=== PATIENT | female | born 2000 | race Caucasian/White ===

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

== ENCOUNTER 2021-06-19 12:02 | Outpatient (REF) | payer OTHER, SELFPAY | END 2021-06-19 12:03 | disposition home or self-care (01) | LOC: HO.HMGCLDS 12:02 | PROVIDERS: PCP Pediatrics; Visit Provider Internal Medicine | DX: Z13.89 Encounter for screening for other disorder (principal) ==

== ENCOUNTER 2024-11-30 11:19 | Outpatient (AMB) | payer OTHER, SELFPAY ==
--- NOTE | 2024-11-30 11:21 | A.OFFPC_ITS ---
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: No Is last menstrual period known: Yes Last menstrual period: 11/09/24 Post menopausal: No Patient : No Allergies Sulfa (Sulfonamide Antibiotics) Adverse Reaction (Intermediate, Verified 11/30/24 11:40) Hives Medication List - Last Reconciled 11/30/24 by Horace Tafoya CNP No Known Home Meds Tobacco use date assessed: 11/30/24 Dental Screening Dental Screen Date: 11/30/24 Did you have a dental visit in the last 12 months?: Yes Did you have a dental problem in the last 6 months where you did not have access to dental care?: No Was dental information given to patient?: Patient has dentist HPI HPI Comments History of Present Illness Details 24-year-old female presents to [facility] care. She notes controlled anxiety and depressive symptoms for the past 4 years. She was on psychotropic medications until 4 years ago. Has an IUD. Prior PCP? - [facility] Last office visit/CPE/labs - 2 years ago Acute issue(s) - None Past Medical History - IBS, anxiety, depression, myopia Surgical History - None Family History - Dad: Bipolar 1 disorder - Mom: Breast cancer Social History - Nonsmoker. Does not vape. Drinks 1-2 b eer monthly. Smoke cannabis 2-3 times monthly - Has been making healthy dietary choice s. Exercises routinely. Generally sleep well - She is sexually active, in a monogamou s relationship, and has no concern for STDs Health maintenance - Last eye exam was over 2 years ago. Re dara to Ophthalmology for routine eye exam - Last dental visit was within the past 6 months - Unknown last tetanus vaccine status. H ealth record from previous PCP not currently available. She will obtain her immunization record for her PCP to review - She notes that she is up-to-date on flu vaccine - Last pap smear test was over 2 years a go: normal. Referred to 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 1. Little interest or pleasure in doing things: not at all 2. Feeling down, depressed, or hopeless: not at all 3. Trouble falling or staying asleep, or sleeping too much: not at all 4. Feeling tired or having little energy: several days 5. Poor appetite or overeating: not at all 6. Feeling bad about yourself - or that you are a failure or have let yourself or your family down: not at all 7. Trouble concentrating on things, such as reading the newspaper or watching television: several days 8. Moving or speaking so slowly that other people could have noticed. Or the opposite - being so fidgety or restless that you have been moving around a lot more than usual: several days 9. Thoughts that you would be better off or of hurting yourself in some way: not at all Total score: 3 Depression Screening Interpretation: Negative Depression Screening Done: Yes 81010 - PHQ-9 Billing: Yes Source: Developed by Drs. Washington Rogers, Priya Hood, Curt Bucio and colleagues, with an educational deepak from [employer]. Thrive Questionnaire Date Thrive assessed: 11/30/24 I am a: Patient What is your living situation today?: I have a steady place to live Within the past 12 months, did the food you bought not last and you didn't have the money to get more?: Sometimes True Within the past 12 months, did you worry whether your food would run out before you got money to buy more?: Sometimes True Do you have trouble paying for medicines?: No Do you have trouble getting transportation to medical appointments?: No Do you have trouble paying your heating and electricity bill?: No Do you have trouble taking care of your child, family member or friend?: I choose not to answer this question Do you have trouble with day-to-day activities such as bathing, preparing meals, shopping, managing finances, etc.?: No Are you currently unemployed and looking for a job?: No Are you interested in more education?: Yes Please select the resources that you would like help with: Education Currently or been in a relationship where the following occur: No concerns reported THRIVE Score: 2 AUDIT C Alcohol Use Questionnaire (AUDIT-C) 1. How often do you have a drink containing alcohol?: Monthly or less 2. How many drinks containing alcohol do you have on a typical day when you are drinking?: 1 or 2 3. How often do you have six or more drinks on one occasion?: Less than monthly Total Score: 2 AMINTA-7 AMB Questionnaire AMINTA-7 Date AMINTA - 7 assessed: 11/30/24 Feeling nervous, anxious, or on edge: 1 = Several days Not being able to stop or control worryin = Not at all Worrying too much about different things: 0 = Not at all Trouble relaxin = Not at all Being so restless that it is hard to sit still: 0 = Not at all Becoming easily annoyed or irritable: 0 = Not at all Feeling afraid as if something awful might happen: 0 = Not at all Total AMINTA-7 score (0-4 normal; 5-9 mild; 10-14 moderate; 15-21 severe): 1 Source: Developed by Drs. Washington Rogers, Priya Hood, Curt Bucio and colleagues, with an educational deepak from [employer]. AMINTA-7 Assessment Billing AMINTA-7 Assessment Tool: AMINTA-7 Assessment 13703 Review of Systems Const Details: Denies chills, Denies fatigue, Denies fever(s), Denies headache(s) and Denies weakness HEENT Denies change in vision, Denies dizziness, Denies headache(s), Denies hearing loss, Denies nasal congestion, Denies sinus pain, Denies sinus pressure and Denies sore throat Card Denies chest pain, Denies lightheadedness, Denies dyspnea and Denies other (palpitations) Resp Denies cough, Denies dyspnea and Denies wheezing GI Denies abdominal pain, Denies melena, Denies hematochezia, Denies change in bowel habits, Denies dyspepsia and Denies nausea Denies hematuria and Denies dysuria Musc Denies abnormal gait, Denies myalgias, Denies arthralgias, Denies numbness and Denies tingling Skin/Breast Denies rash, Denies unusual bruising and Denies wounds Neuro Denies abnormal gait, Denies dizziness, Denies headache(s), Denies memory loss, Denies numbness, Denies Sensory deficit (Neuro), Denies tingling and Denies weakness Psych Denies anxiety, Denies depression and Denies memory loss Endo Denies cold intolerance, Denies fatigue, Denies heat intolerance, Denies polydi psia and Denies polyuria Umair/Lymph Denies easy bleeding and Denies easy bruising Aller/Immun Denies wheezing Physical exam (Primary Care) Vital Signs: Last Vital Signs Temp 97.3 F 11/30/24 11:32 Pulse 94 11/30/24 11:32 Resp 16 11/30/24 11:32 BP 115/66 11/30/24 11:32 Pulse Ox 100 11/30/24 11:32 Oxygen Delivery Method Room Air 11/30/24 11:32 BMI result Body Mass Index 26.8 Tobacco/Smoking Status: Tobacco use Status Tobacco use date assessed 11/30/24 11/30/24 11:32 Patient Tobacco Use Status Never used Tobacco 11/30/24 11:32 e-Cigarette/Vaping Use Never Used 11/30/24 11:32 PHQ-9: PHQ-9 Score PHQ-9: Total score 3 11/30/24 11:32 Depression Screening Interpretation: Negative Thrive Assessment: Date of Thrive Assessment Date Thrive assessed 11/30/24 11/30/24 11:32 Currently or been in a relationship where the following occur: No concerns reported Const Other: General: no acute distress, well developed, alert and awake Nutritional Appearance: well nourished Orientation/consciousness: patient oriented x3 HENMT Head: Yes normocephalic and Yes atraumatic Ears: hearing grossly normal bilaterally and TM's normal bilaterally General nose exam: Normal external nose present and Normal nares present Mouth: Normal oral and palatal mucosa present and moist mucous membranes Teeth and gingiva: dentition normal Throat: Yes oropharynx normal Eyes Pupils: Equal, round and reactive pupils present and Pupil accommodation reflex normal EOM: EOMs intact bilaterally Neck Neck: Yes normal visual inspection, Yes no lymphadenopathy and Yes trachea midline Thyroid: Thyroid normal Carotids: no bruits Lymphatic: no lymphadenopathy noted Chest Chest palpation & inspection: normal inspection of the chest Resp Effort & Inspection: normal respiratory effort Auscultation: clear to auscultation bilaterally Cardio Rate: regular rate Rhythm: regular rhythm Heart sounds: S1 normal heart sound present, S2 normal heart sound present, no gallops, no murmurs and no rubs Bruits: no abdominal aortic bruits and no carotid bruits GI Palpation (GI): No Abdominal aortic bruit present, Soft to palpation, nontender, No hepatosplenomegaly present and No Rebound tenderness present Auscultation: normal bowel sounds General: Yes no CVA tenderness Back/Spine/Pelvis Back: no CVA tenderness Cervical Spine: cervical ROM normal and No Cervical spine tenderness Thoracic/Lumbar Spine: thoraco-lumbar ROM normal, No pain with thoraco-lumbar ROM, No thoracic spinal tenderness and No lumbar spinal tenderness Skin General: warm and dry. Normal skin color. Normal skin turgor Lesions: no lesions Rashes: no rashes Trauma: no lacerations or abrasions Wounds: no wounds Nails: normal Neuro General: patient oriented x3, gait normal and CN's II-XI intact bilaterally Cranial nerves: Yes Equal, round and reactive pupils present Cognition (Neuro): normal cognition Gait exam (Neuro): Normal gait present Motor exam (neuro): 5/5 motor strength present throughout Sensory Exam: No Sensory deficit (Neuro) Deep tendon reflexes (DTR's): Right patellar reflex intensity grade: 2+ and Left patellar reflex intensity grade: 2+ Extrem General: Yes normal to inspection, No edema and No calf tenderness Psych Appearance: grossly normal Affect: normal affect Attitude: cooperative Thought process: Normal thought process present Coding Level of Care Code New Pt Prev Care 18-39yr(17709 Diagnoses Normal physical examination, routine Z00.00 Anxiety and depression F41.9; F32.A Pap smear for cervical cancer screening Z12.4 Eye exam, routine Z01.00 Laboratory tests ordered as part of a complete physical exam (CPE) Z00.00 Additional Codes AMINTA-7 Assessment Billing - AMINTA-7 Assessment Tool: AMINTA-7 Assessment 44451 ([id number]) PHQ-9 - 68586 - PHQ-9 Billing: Yes ([id number]) Assessment & Plan Assessment & Plan (1) Normal physical examination, routine: Code(s): Z00.00 - Encounter for general adult medical examination without abnormal findings Category: Medical Plan: No significant functional limitation noted. Advised to perform lab work 2-3 days before next visit. Follow-up for telehealth visit in 2-3 weeks for labs review or sooner with symptoms or concerns. Verbalized understanding and agreed with treatment plan. (2) Anxiety and depression: Code(s): F41.9 - Anxiety disorder, unspecified; F32.A - Depression, unspecified Category: Medical Plan: Controlled anxiety and depressive symptoms for the past 4 years. She was on psychotropic medications until 4 years ago. PHQ-9 and AMINTA-7 scores are normal. Routine exercise encouraged. Follow-up with symptoms or concerns. Verbalized understanding and agreed with treatment plan. (3) Pap smear for cervical cancer screening: Code(s): Z12.4 - Encounter for screening for malignant neoplasm of cervix Category: Medical Plan: Last pap smear test was over 2 years ago: normal. Referred to [facility] multimedia editor. (4) Eye exam, routine: Code(s): Z01.00 - Encounter for examination of eyes and vision without abnormal findings Category: Medical Plan: Her last eye exam was over 2 years ago. Refer to Ophthalmology for routine eye exam. (5) Laboratory tests ordered as part of a complete physical exam (CPE): Code(s): Z00.00 - Encounter for general adult medical examination without abnormal findings Category: Medical Plan: Fasting labs ordered as part of a complete physical exam. Advised to fast for at least 10 hours before getting labs drawn. May drink water Verbalized understanding and agreed with treatment plan. Orders: Orders Complete Blood Count Auto Diff Today Z00.00 - Encounter for general adult medical examination without abnormal findings TSH reflex Free T4 Today Z00.00 - Encounter for general adult medical examination without abnormal findings Vitamin D 25-OH Total Today Z00.00 - Encounter for general adult medical examination without abnormal findings Comprehensive [place]. Panel Fast Today Z00.00 - Encounter for general adult medical examination without abnormal findings Lipid Panel Today Z00.00 - Encounter for general adult medical examination without abnormal findings UA CC w/rflx Micro + Cult Today Z00.00 - Encounter for general adult medical examination without abnormal findings Referrals MEDICAL DETAIL REPRESENTATIVE Referral Z12.4 - Encounter for screening for malignant neoplasm of cervix Ophthalmology Referral Z01.00 - Encounter for examination of eyes and vision without abnormal findings
[2024-11-30 11:32] VITALS: BP 115/66; PULSE 94; RESP 16; TEMP 36.3; O2SAT 100; BMI 26.8
== END 2024-11-30 11:55 | disposition home or self-care (01) ==
LOC: HO.HMCFM 11:20
PROVIDERS: PCP Nurse Practitioner Family; Visit Provider Nurse Practitioner Family
DX: Z00.00 Encounter for general adult medical examination without abnormal findings (principal); F41.9 Anxiety disorder, unspecified; F32.A Depression, unspecified

== ENCOUNTER → 2024-11-30 11:19 | Outpatient (BNVA) | payer OTHER, SELFPAY | PROVIDERS: PCP Nurse Practitioner Family; Visit Provider Nurse Practitioner Family | DX: Z00.00 Encounter for general adult medical examination without abnormal findings (principal); F41.9 Anxiety disorder, unspecified; F32.A Depression, unspecified | CPT/HCPCS: 96127 ==

== ENCOUNTER 2024-12-11 16:04 | Outpatient (REF) | payer OTHER, SELFPAY ==
[2024-12-11 16:24] LABS: MANUAL DIFF FLAG NO
[2024-12-11 17:12] LABS: Basophils Absolute Auto 0.1 X10*3/uL (0.0-0.2); Basophils Percent Auto 0.7 % (0-2); Eosinophils Absolute Auto 0.1 X10*3/uL (0.0-0.4); Eosinophils Percent Auto 0.9 % (0-4); Hematocrit 38.5 % (37.0-47.0); Hemoglobin 13.4 g/dl (12.0-16.0); Imm Gran Abs Auto 0.03 X10*3/uL (0.00-0.03); Imm Gran Pct Auto 0.3 % (0.0-0.4); Lymphocytes Absolute Auto 2.9 X10*3/uL (1.2-4.9); Mean Corpuscular HGB Conc 34.8 g/dl (31.0-35.0); Mean Corpuscular Volume 89.1 fL (80.0-98.0); Mean Platelet Volume 9.4 fL (9.4-12.3); Monocytes Absolute Auto 0.6 X10*3/uL (0.1-1.2); Monocytes Percent Auto 6.3 % (2-11); Neutrophils Percent Auto 61.8 % (45-73); Platelet Count 319 X10*3/uL (160-400); Red Blood Count 4.32 X10*6/uL (4.20-5.50); White Blood Count 9.7 X10*3/uL (4.8-10.8)
[2024-12-11 17:44] LABS: Appearance Urine Clear; Color Urine Yellow; Glucose Urine UA Negative (Negative); Leukocyte Esterase Urine Negative (Negative); Nitrite Urine Negative (Negative); Specific Gravity - Urine 1.025 (1.005-1.025); Urine Blood Negative (Negative); Urine Ketones Negative (Negative); Urine Protein Negative (Neg-Trace)
[2024-12-11 17:46] LABS: Alanine Aminotransferase 19 U/L (0-31); Albumin Level 4.6 g/dL (3.5-5.0); Alkaline Phosphatase 43 U/L (39-117); Anion Gap 11 (12-20); Aspartate Amino Transferase 16 U/L (5-31); Bilirubin Total 0.4 mg/dL (0.0-1.0); Blood Urea Nitrogen 18 mg/dL (9-16); Calcium 9.7 mg/dL (8.4-10.2); Carbon Dioxide 26 mmol/L (22-29); Chloride 108 mmol/L (96-108); Cholesterol 162 mg/dL (<200); Estimated Glomerular Filt Rate > 60; Glucose Fasting 87 mg/dL (60-99); HDL Cholesterol 77 mg/dL (>40); LDL Cholesterol Calculated 75 mg/dL (<100); Potassium 4.5 mmol/L (3.3-5.1); Sodium 140 mmol/L (135-145); Triglycerides 52 mg/dL (<150)
[2024-12-11 18:01] LABS: TSH reflex Free T4 0.97 uIU/mL (0.32-4.0); Vitamin D 25-OH Total 23.7 ng/mL (>30)
== END 2024-12-11 16:05 | disposition home or self-care (01) ==
LOC: HO.LAB 16:04
PROVIDERS: PCP Nurse Practitioner Family; Visit Provider Nurse Practitioner Family
DX: Z00.00 Encounter for general adult medical examination without abnormal findings (principal)
CPT/HCPCS: 36415; 80053; 80061; 81003; 82306; 84443; 85025

== ENCOUNTER 2024-12-14 15:20 | Outpatient (AMB) | payer OTHER, SELFPAY ==
--- NOTE | 2024-12-14 15:17 | A.OFFPC_ITS ---
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 Required: No Is last menstrual period known: Yes Last menstrual period: 11/23/24 Post menopausal: No Patient : No Allergies Sulfa (Sulfonamide Antibiotics) Adverse Reaction (Intermediate, Verified 12/14/24 15:18) Hives Tobacco use date assessed: 12/14/24 Dental Screening Dental Screen Date: 12/14/24 Did you have a dental visit in the last 12 months?: Yes Did you have a dental problem in the last 6 months where you did not have access to dental care?: No Was dental information given to patient?: Patient has dentist HPI HPI Comments History of Present Illness Details 24-year-old female presents for review o f recent labs results. She offers no complaints and denies acute symptoms at this time. 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 Washington Rogers, Priya Hood, Curt Bucio and colleagues, with an educational deepak from [employer]. Review of Systems Const Details: Denies chills, Denies fatigue, Denies fever(s), Denies headache(s) and Denies weakness Cardiac Denies chest pain, Denies claudication, Denies leg edema, Denies lightheadedness, Denies palpitations, Denies dyspnea, Denies dyspnea on exertion, Denies orthopnea and Denies other (Loss of consciousness) Resp Denies cough, Denies excessive phlegm production, Denies dyspnea, Denies dyspnea on exertion, Denies snoring and Denies wheezing Physical exam (Primary Care) Tobacco/Smoking Status: Tobacco use Status Tobacco use date assessed 12/14/24 12/14/24 15:19 Patient Tobacco Use Status Never used Tobacco 12/14/24 15:19 e-Cigarette/Vaping Use Never Used 12/14/24 15:19 Thrive Assessment: Date of Thrive Assessment Date Thrive assessed 11/30/24 12/14/24 15:19 Const Other: Patient is alert oriented x3. Telehealth Telehealth Telehealth Platform: Telephone Location of provider rendering services: practice address Location of patient: address on file Patient Identification confirmed using: Name, : Yes Telehealth method: voice only Patient verbally consented to treatment: Yes Patient verbally consented to billing insurance company: Yes Patient informed of any privacy concerns related to visit: Yes Coding Level of Care Code Tele Est Pt Level 3 (80907) Diagnoses Vitamin D deficiency E55.9 Time Spent (min) 10 Assessment & Plan Assessment & Plan (1) Vitamin D deficiency: Code(s): E55.9 - Vitamin D deficiency, unspecified Category: Medical Plan: Recent vitamin-D level is low, 23.7. Vitamin D3 1000 units daily ordered; advised to take as prescribed. Perform vitamin-D blood work 2-3 days before next visit. Follow-up for telehealth visit in 6 weeks or sooner with symptoms or concerns. Verbalized understanding and agreed with the plan. Orders: Orders Vitamin D 25-OH Total 6 Weeks E55.9 - Vitamin D deficiency, unspecified Medications: New cholecalciferol (vitamin D3) 25 mcg PO DAILY 30 tabs 3RF 30 days
== END 2024-12-14 16:05 | disposition home or self-care (01) ==
LOC: HO.HMCFM 15:20
PROVIDERS: PCP Nurse Practitioner Family; Visit Provider Nurse Practitioner Family
DX: E55.9 Vitamin D deficiency, unspecified (principal)

== ENCOUNTER 2025-02-25 06:16 | Outpatient (REF) | payer OTHER, SELFPAY ==
[2025-02-25 08:06] LABS: Vitamin D 25-OH Total 26.7 ng/mL (>30)
== END 2025-02-25 06:17 | disposition home or self-care (01) ==
LOC: HO.LAB 06:16
PROVIDERS: PCP Nurse Practitioner Family; Visit Provider Nurse Practitioner Family
DX: E55.9 Vitamin D deficiency, unspecified (principal)
CPT/HCPCS: 36415; 82306

== ENCOUNTER 2025-02-26 15:23 | Outpatient (AMB) | payer OTHER, SELFPAY ==
--- NOTE | 2025-02-26 15:19 | A.OFFPC_ITS ---
Intake Visit Reasons: 6 wks Vit D deficiency Intake Note: patient here for 6 wks telehealth follow up for vit D deficiency Cash Applications Analyst Required: No Is last menstrual period known: Yes Post menopausal: No Patient : No Followed by:: Just started period 2 days ago 02/24/2025 Allergies Sulfa (Sulfonamide Antibiotics) Adverse Reaction (Intermediate, Verified 02/26/25 15:20) Hives Tobacco use date assessed: 02/26/25 Dental Screening Dental Screen Date: 02/26/25 Did you have a dental visit in the last 12 months?: Yes Did you have a dental problem in the last 6 months where you did not have access to dental care?: No Was dental information given to patient?: Patient has dentist HPI HPI Comments History of Present Illness Details 24-year-old female presents [facility] for vitamin-D deficiency follow-up. She admits to taking vitamin D3 25 mcg daily without adverse reactions. She offers no complaints and denies acute symptoms at this time. 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 Washington Rogers, Priya Hood, Curt Bucio and colleagues, with an educational deepak from [employer]. Review of Systems Const Details: Denies chills, Denies fatigue, Denies fever(s), Denies headache(s) and Denies weakness Cardiac Denies chest pain, Denies claudication, Denies leg edema, Denies lightheadedness, Denies palpitations, Denies dyspnea, Denies dyspnea on exertion, Denies orthopnea and Denies other (Loss of consciousness) Resp Denies cough, Denies excessive phlegm production, Denies dyspnea, Denies dyspnea on exertion, Denies snoring and Denies wheezing Physical exam (Primary Care) Tobacco/Smoking Status: Tobacco use Status Tobacco use date assessed 02/26/25 02/26/25 15:21 Patient Tobacco Use Status Never used Tobacco 02/26/25 15:21 e-Cigarette/Vaping Use Never Used 02/26/25 15:21 Thrive Assessment: Date of Thrive Assessment Date Thrive assessed 11/30/24 02/26/25 15:21 Const Other: Patient is alert and oriented x3 Telehealth Telehealth Telehealth Platform: Telephone Location of provider rendering services: practice address Location of patient: address on file Patient Identification confirmed using: Name, : Yes Telehealth method: voice only Patient verbally consented to treatment: Yes Patient verbally consented to billing insurance company: Yes Patient informed of any privacy concerns related to visit: Yes Coding Level of Care Code Tele Est Pt Level 3 (02815) Diagnoses Vitamin D deficiency E55.9 Time Spent (min) 15 Assessment & Plan Assessment & Plan (1) Vitamin D deficiency: Code(s): E55.9 - Vitamin D deficiency, unspecified Category: Medical Plan: Recent vitamin-D level is slightly low, 26.7. Vitamin D3 increased to 50 mcg daily; advised to take as prescribed. Informed that the son is a good source of vitamin-D Perform vitamin-D blood work a few days before next visit. Follow-up for telehealth visit in 6 weeks. Return sooner with symptoms or concerns. Verbalized understanding and agreed with treatment plan. Medications: New cholecalciferol (vitamin D3) 50 mcg PO DAILY 90 days 90 tabs 3RF Discontinued cholecalciferol (vitamin D3) Discontinued Reason: Doctor's Order 25 mcg PO DAILY 30 days 30 tabs 3RF
== END 2025-02-26 16:37 | disposition home or self-care (01) ==
LOC: HO.HMCFM 15:23
PROVIDERS: PCP Nurse Practitioner Family; Visit Provider Nurse Practitioner Family
DX: E55.9 Vitamin D deficiency, unspecified (principal)

== ENCOUNTER → 2025-02-26 15:23 | Outpatient (BNVA) | payer OTHER, SELFPAY | PROVIDERS: PCP Nurse Practitioner Family; Visit Provider Nurse Practitioner Family ==

== ENCOUNTER 2025-07-25 13:48 | Outpatient (AMB) | payer OTHER, SELFPAY ==
--- NOTE | 2025-07-25 13:51 | A.OFFVIS_ITS ---
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 She has a Liletta IUD and she has liked it it is due for replacement in October she has had it for almost 6 years she gets very subtle symptoms of her. With mild spotting and a little bit of cramping and a little acne beforehand and a little of mood changes and breast sensitivity beforehand help her know when the period is there. She would like a replacement of the IUD and would like the hormonal method. Also she has a family history of breast cancer her mother was diagnosed with breast cancer at age 38 and when she was 43 and her grandmother had breast cancer as well. 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 [facility] Medical History Depression Anxiety IBS (irritable bowel syndrome) Family History Father FH: mental illness Mother Breast cancer Social History (Updated 07/25/25 @ 14:11 by Kelsie Cardozo MA) Housing: House Alcohol intake: current Patient Tobacco Use Status: Never used Tobacco e-Cigarette/Vaping Use: Never Used Second Hand Smoke Exposure: No Substance Use Type: Marijuana Patient : No service: No Current occupational status: employed and student Current occupational exposures/hazards: No Cognitive needs: No Hearing needs: No Vision needs: Yes Female Reproductive History Menstrual Age of Menarche: 12 Duration of menses: 6-7 days Date of last menstrual period: 07/19/25 control method: progestin IUCD (Liletta) Total pregnancies: 0 History of abnormal pap smear: No Physical Exam Const General: healthy appearing, comfortable, no acute distress, well developed and alert Nutritional Appearance: average body habitus Orientation/consciousness: patient oriented x3 Limitations: no limitations HEENT Head: Yes normocephalic Neck Neck: Yes normal visual inspection Chest Chest palpation & inspection: normal inspection of the chest Breast/axilla inspection: normal inspection of the breasts and normal inspection of the axillae Breast/axilla palpation: normal palpation of the axillae, abnormal palpation of the breast (Irregular firmness of tissue right [id number]) and other (Left breast there is a large firm mass irregular borders 11:00 to 1:00) Chest/axillae images: 2 1. Small nodularity right breast 05:00 2. Larger irregular firm mass 1:00 to 11:00 Resp Effort & Inspection: normal respiratory effort GI Inspection: Yes normal to inspection, No Abdominal wall edema and No distended Palpation (GI): Soft to palpation and nontender Other: Normal external exam vagina is pink and moist clear fluid with end of menses pink tinge cervix nulliparous pink smooth with blob of clear mucus consistent with hormonal contraceptive and Liletta string extending about 2-3 cm. Uterus is small midposition mobile nontender adnexa nontender extremely good tone with Kegel. General: Yes bladder normal to palpation External Female Exam: normal external appearance and normal appearance of the urethra Speculum Exam - Vagina: normal appearance of the vagina, normal palpation and normal vaginal discharge Speculum Exam - Cervix: normal appearance of the cervix, normal palpation and nontender Bimanual exam- vagina & uterus: normal bimanual exam, normal palpation, uterine size normal, bladder normal to palpation, consistency normal, normal palpation, uterine mobility normal, uterine shape normal, No Cervical tenderness present, non-tender and no cervical motion tenderness Bimanual Exam- Adnexa, other: normal adnexae, no masses, normal and No adnexal tenderness Neuro General: patient oriented x3 Assessment & Plan Assessment & Plan (1) Pap smear for cervical cancer screening: Code(s): Z12.4 - Encounter for screening for malignant neoplasm of cervix Category: Medical (2) Presence of 52 mg levonorgestrel-releasing intrauterine device (IUD): Comment: Has Liletta it is due to be replaced this September or October Mirena pace with Mirena when she has her menses Code(s): Z97.5 - Presence of (intrauterine) contraceptive device Category: Social Hx (3) Family history of breast cancer in first degree relative: Code(s): Z80.3 - Family history of malignant neoplasm of breast Category: Medical (4) Breast mass in female: Comment: ? Small mass right breast 05:00, larger mass left breast 1:00 to 11:00 irregular. Code(s): N63.0 - Unspecified lump in unspecified breast Category: Medical (5) Screen for sexually transmitted diseases: Code(s): Z11.3 - Encounter for screening for infections with a predominantly sexual mode of transmission Category: Medical Plan -----Discussed in this visit the following: healthy balanced diet, regular and consistent exercise, getting recommended health screens, doing the best she can for her particular health concerns, kegel exercises, pap smear screening and followup recommendations, mammography screening and SBE, normal changes in cycles in her life stage--- .Reviewed how the Mirena works and its affect on menstrual cycles and menses and the other common changes that women sometimes notice on mood weight another subtle cyclic changes. Reviewed that 1 of the reasons we insert the Mirena at the beginning of the menses is because of the typical physiologic changes that happen with menses that allow for the cervix to be slightly softened and open a very tiny bit which allow for more easy insertion of the Mirena. Additionally when it is inserted at the beginning of the menstrual cycle the endometrial lining has not built up very much yet as it is just shedding its lining, and therefore future periods will be expected to be cloth bleaching range tender and there will be less of a problematic side effect of irregular bleeding which might occur her if we inserted it at a random time. Discussed problems to watch for including any severe pain, fever, feeling of expulsion. Also discussed what to do if those occur.(call here or seek urgent care) Reviewed why we leave the strings about 3-4 centimetres long, so that they will curl around the cervix otherwise the sharper tip of the strings could be palpable and be uncomfortable. Additionally when they are cut too short it is not possible to remove the IUD in the future easily. Also discussed the initial recommendations to use the Mirena IUD for contraception for up to 5 years. Some recent studies are indicating that it can be used for longer and there are current recommendations saying it can be left for longer period of time when used for contraception, up to 8 years and it can be used for 5 years when it is being used to help control abnormal bleeding. However, many women, whose periods went away for the 1st few years of having the Mirena, have reported that around 4-1/2-5 years into its use, they have noticed return of full menses, and return of ovulatory signs and symptoms midcycle. This varies from women to woman. In addition women who have had it to help control bleeding, have had amenorrhea for very many years and sometimes have opted to leave it in longer if they are still not bleeding, when they are not concerned about contraception. I recommend the she pay attention to how the effects are acting on her own body, and cycles, and always take care to be aware of this. And if she is using it for contraception, and the consequences of conceiving would be great for her, she would be bonner to pay attention to this, and not depend on it, if she has a return to fertility. And if she desires replacement, she should return for replacement at the appropriate time. As regards family history of breast cancer we discussed either following up with her primary but then I decided to place the referral myself with Dr. Loya for discussion of screening especially in light of palpation of what maybe lumpy breasts or what maybe a breast mass especially left side with a questionable small mass on the right as well I referred her for diagnostic mammogram of both and breast ultrasounds as well We will plan for replacement of the Mirena when she has her period. Sometime in September or October Orders: Orders 2 MM tomosynthesis diagnostic BI Today N63.0 - Unspecified lump in unspecified breast, Z80.3 - Family history of malignant neoplasm of breast US breast LT complete Today N63.0 - Unspecified lump in unspecified breast, Z80.3 - Family history of malignant neoplasm of breast US breast RT complete Today N63.0 - Unspecified lump in unspecified breast, Z80.3 - Family history of malignant neoplasm of breast Hepatitis C Antibody Today N63.0 - Unspecified lump in unspecified breast, Z11.3 - Encounter for screening for infections with a predominantly sexual mode of transmission, Z12.4 - Encounter for screening for malignant neoplasm of cervix, Z80.3 - Family history of malignant neoplasm of breast, Z97.5 - Presence of (intrauterine) contraceptive device Hepatitis B Surface Antigen Today N63.0 - Unspecified lump in unspecified breast, Z11.3 - Encounter for screening for infections with a predominantly sexual mode of transmission, Z12.4 - Encounter for screening for malignant neoplasm of cervix, Z80.3 - Family history of malignant neoplasm of breast, Z97.5 - Presence of (intrauterine) contraceptive device HIV Ab/Ag Today N63.0 - Unspecified lump in unspecified breast, Z11.3 - Encounter for screening for infections with a predominantly sexual mode of transmission, Z12.4 - Encounter for screening for malignant neoplasm of cervix, Z80.3 - Family history of malignant neoplasm of breast, Z97.5 - Presence of (intrauterine) contraceptive device Syphilis Screen Today N63.0 - Unspecified lump in unspecified breast, Z11.3 - Encounter for screening for infections with a predominantly sexual mode of transmission, Z12.4 - Encounter for screening for malignant neoplasm of cervix, Z80.3 - Family history of malignant neoplasm of breast, Z97.5 - Presence of (intrauterine) contraceptive device Pap Smear Today Z01.419 - Encounter for gynecological examination (general) (routine) without abnormal findings CT NG by PCR Vag/Cerv Today Z11.3 - Encounter for screening for infections with a predominantly sexual mode of transmission Bacterial Vaginosis Panel Today Z11.3 - Encounter for screening for infections with a predominantly sexual mode of transmission Referrals 2 Breast Surgery Referral N63.0 - Unspecified lump in unspecified breast, Z80.3 - Family history of malignant neoplasm of breast Coding Level of Care Code New Pt Prev Care 18-39yr([id number] Diagnoses Pap smear for cervical cancer screening Z12.4 Presence of 52 mg levonorgestrel-releasing intrauterine device (IUD) Z97.5 Family history of breast cancer in first degree relative Z80.3 Breast mass in female N63.0 Screen for sexually transmitted diseases Z11.3
--- OUTSIDE RECORDS SUMMARY | 2025-07-25 16:47 | XMS_ITS | Clinical Summary ---
Author Organization [facility] Address [address] [place] [address] Phone Care Team Providers Care Quality Supervisor Name Role Phone Tripp Ren MD Primary Care Provider [phone] Allergies Active Allergy Reactions Criticality Noted Date Comments Sulfa (Sulfonamide Antibiotics) Hives 07/20 Medications VENTOLIN HFA 90 mcg/actuation inhaler 06/23/2023 Active doxycycline hyclate (DORYX) 100 MG tablet 06/23/2023 Activ e Social History Tobacco Use Types Packs/Day Years Used Date Smoking Tobacco: Never Assessed Education Answer Date Recorded Are you interested in more education? Not on valeriy e 08/06/2023 Are you concerned about learning? Not on file 08/06/2023 No 08/06/2023 No 08/06/2023 Digital Access Answer Date Recorded No 08/06/2023 No 08/06/2023 Reliable internet access at home? Not on file 08/06/2023 Device with a working camera? Not on file Comments Unknown Sex and Gender Information Value Date Recorded Sex Assigned at Not on file Legal Sex Female 11:07 PM EST Gender Identity Not on file Sexual Orientation Not on file Last Filed Vital Signs Vital Sign Reading Time Taken Comments Blood Pressure 118/84 08/06/2023 10:30 AM EST Pulse 100 08/06/2023 10:30 AM EST Temperature 37.6 C (99.6 F) 08/06/2023 10:30 AM EST Respiratory Rate 20 08/06/2023 10:30 AM EST Oxygen Saturation 97% 08/06/2023 10:30 AM EST Inhaled Oxygen Concentration - - Weight - - Height - - Body Mass Index - - Plan of Treatment Health Maintenance Due Date Last Done Comments Adult Td,Tdap Booster 2001 DEPRESSION SCREENING 2013 SMOKING Hx and SMOKELESS TOB ACCO SCREENING 2014 HPV VACCINES (1 - 3-dose series) 2016 CHLAMYDIA SCREENING 2017 MENINGOCOCCAL VACCINES (B) ( 1 of 2 - Standard) 2017 HEPATITIS C SCREENING 2019 HIV ONE-TIME SCREENING (18-6 5 YEARS) 2019 PAP SMEAR 2022 INFLUENZA VACCINE (#1) 2025 COVID-19 VACCINE ( - 2024-2 6 season) 2025 HEPATITIS A VACCINES Aged Out No long er eligible based on patient's age to complete this topic HIB VACCINES Aged Out No longer eligi ble based on patient's age to complete this topic MENINGOCOCCAL VACCINES (ACWY) Aged Out No longer eligible based on patient's age to complete this topic PNEUMOCOCCAL VACCINES (0-49 years) Aged Out No longer eligible based on patient's age to complete this topic Medical Devices Not on file [place] [address] [employer] Care Teams Quality Supervisor Relationship Specialty Start Date End Date Tripp Ren MD [address] [place] [id number] PCP - General 08/06/23 Additional Source Comments The information contained in this document represents components of the legal health record. It is not the complete legal health record.[facility]
== END 2025-07-25 15:39 | disposition home or self-care (01) ==
LOC: HO.HWSM 13:48
PROVIDERS: PCP Nurse Practitioner Family; Visit Provider Advanced Practice Midwife
DX: Z01.419 Encounter for gynecological examination (general) (routine) without abnormal findings (principal); N63.21 Unspecified lump in the left breast, upper outer quadrant; Z97.5 Presence of (intrauterine) contraceptive device; Z80.3 Family history of malignant neoplasm of breast; Z11.3 Encounter for screening for infections with a predominantly sexual mode of transmission
CPT/HCPCS: 99385; 99459

== ENCOUNTER 2025-07-25 13:48 | Outpatient (REF) | payer OTHER, SELFPAY ==
[2025-07-26 04:32] LABS: Bacterial Vaginosis PCR NEGATIVE (Negative); Candida Group PCR NOT DETECTED (Not Detect); Candida glab krusei PCR NOT DETECTED (Not Detect); Trichomonas vaginalis PCR NOT DETECTED (Not Detect)
[2025-07-26 05:03] LABS: CT PCR NOT DETECTED (Not Detect.); NG PCR NOT DETECTED (Not Detect.)
== END 2025-07-25 13:49 | disposition home or self-care (01) ==
LOC: HO.LNP 13:48
PROVIDERS: PCP Nurse Practitioner Family; Visit Provider Advanced Practice Midwife
DX: Z01.419 Encounter for gynecological examination (general) (routine) without abnormal findings (principal); N63.0 Unspecified lump in unspecified breast; Z20.2 Contact with and (suspected) exposure to infections with a predominantly sexual mode of transmission; Z80.3 Family history of malignant neoplasm of breast; Z97.5 Presence of (intrauterine) contraceptive device
CPT/HCPCS: 81515; 87491; 87591; 88175; 99385

== ENCOUNTER 2025-09-03 08:16 | Outpatient (AMB) | payer OTHER, SELFPAY ==
--- NOTE | 2025-09-03 08:18 | MHC.OFFVIS ---
Vital Signs 09/03/25 08:25 Height 5 ft 6 in Weight 169 lb 4 oz BMI 27.3 BP 119/68 Blood Pressure Location Rt brachial Position Sitting Pulse 85 Intake Visit Reasons: Unspecified lump in unspecified breast Intake Note: Patient is seen in office for evaluation of bilateral breast mass. Pt c/o: right breast at 5 0'clock, left breast 11 to 1 0'clock mass, denies nipple discharge, denies change in size or shape of the breast, report she has noticed some hair growth on b/l breasts. 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 She reports that her left breast feels harder than the right but denies any nipple discharge, breast pain or a prior history of breast problems or breast surgery. Her family history is significant for her mother developing breast cancer at the age of 38 and subsequently passing at the age of 42. Her maternal grandmother also was treated for breast cancer. She is uncertain if her mother underwent genetic testing but knows that her sister underwent genetic testing and was negative. She is aware of only testing cousins with ovarian cancer. She reports a small amount (8%) of Ashkenazi Zoroastrianism heritage. Her menarche was at the age of 12 and she is nulliparous. Her LMP was 2 weeks prior to examination. 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 Current occupational exposures/hazards: No Cognitive needs: No Hearing needs: No Vision needs: Yes Female Reproductive History Menstrual Age of Menarche: 12 Total pregnancies: 0 Review of Systems Const All systems reviewed & are unremarkable except as noted in HPI and below Physical Exam Vital Signs: Last Vital Signs Pulse 85 09/03/25 08:25 BP 119/68 09/03/25 08:25 BMI result Body Mass Index 27.3 Const General: cooperative and no acute distress Nutritional Appearance: well nourished Orientation/consciousness: patient oriented x3 Limitations: no limitations HEENT Head: Yes normocephalic and Yes atraumatic Ears: hearing grossly normal bilaterally Chest Other: Left breast: No skin change, no nipple retraction, no nipple discharge, area of breast thickening as noted below, no enlarged lymph nodes. Right breast: No skin change, no nipple retraction, no nipple discharge, area of breast thickening as noted below, no enlarged lymph nodes Chest/axillae images:  1. Breast thickening without a discrete mass, no overlying skin changes, mild discomfort with palpation. Mobile within the breast tissue. 2. Breast thickening without a discrete mass, no overlying skin changes, mild discomfort with palpation. Thickening is mobile within the breast tissue. Resp Effort & Inspection: normal respiratory effort, no audible wheezes, no cough and no respiratory distress Cardio Jugular venous distension: no JVD GI Inspection: Yes normal to inspection Skin Other: Warm, dry, no rash Neuro General: patient oriented x3 Extrem General: Yes no clubbing, cyanosis or edema Results Reviewed Results Reviewed: Tyrer-Cuzick score calculation: Assessment & Plan Assessment & Plan (1) Family history of breast cancer in first degree relative: Code(s): Z80.3 - Family history of malignant neoplasm of breast Category: Medical (2) Breast mass in female: Comment: ? Small mass right breast 05:00, larger mass left breast 1:00 to 11:00 irregular. Code(s): N63.0 - Unspecified lump in unspecified breast Category: Medical Plan 24-year-old female patient with a strong family history of breast cancer in a first-degree relative at a young age placing her at high risk for breast cancer as well. Examination does reveal bilateral areas of dense breast tissue especially in the upper quadrants. She is scheduled for a diagnostic mammogram six-month. I discussed genetic testing given her strong family history and she is agreeable to this. This was performed today. The calculated a Tyrer-Cuzick remaining lifetime risk of breast cancer at approximately 42.9% placing her at high risk for breast cancer. She will return approximately 6 weeks to review the genetic testing. We will discuss additional screening including twice yearly clinical breast examinations and yearly breast MRI. Coding Level of Care Code New Pt Level 4 (81232) Diagnoses Family history of breast cancer in first degree relative Z80.3 Breast mass in female N63.0
[2025-09-03 08:25] VITALS: BP 119/68; PULSE 85; BMI 27.3
--- OUTSIDE RECORDS SUMMARY | 2025-09-03 08:32 | XMS_ITS | Clinical Summary ---
Author Organization [facility] Address [address] [place] [address] Phone Care Team Providers Care Rac Specialist Name Role Phone Tripp Ren MD Primary Care Provider Allergies Active Allergy Reactions Criticality Noted Date [...] topic Medical Devices Not on file [place] [address] [place] [address] [employer] Care Teams Rac Specialist Relationship Specialty Start Date End Date Tripp Ren MD [address] [place] [id number] PCP - General 08/06/23 Additional Source Comments The information contained in this document represents components of the legal health record. It is not the complete legal health record.[facility]
== END 2025-09-03 08:57 | disposition home or self-care (01) ==
LOC: HO.HGS 08:17
PROVIDERS: PCP Nurse Practitioner Family; Visit Provider Surgery
DX: Z80.3 Family history of malignant neoplasm of breast (principal); N63.0 Unspecified lump in unspecified breast
CPT/HCPCS: 99204

== ENCOUNTER → 2025-09-03 08:16 | Outpatient (BNVA) | payer OTHER, SELFPAY | PROVIDERS: PCP Nurse Practitioner Family; Visit Provider Surgery | DX: N63.10 Unspecified lump in the right breast, unspecified quadrant (principal); N63.20 Unspecified lump in the left breast, unspecified quadrant; Z80.3 Family history of malignant neoplasm of breast | CPT/HCPCS: 99202 ==